=== PATIENT | female | born 1945 | race Caucasian/White ===

== ENCOUNTER 2017-08-14 10:55 | Emergency (ER) | payer OTHER ==
[~2017-08-14] VITALS: Ht 157.5 cm; Wt 72.6 kg
[~2017-08-14 10:55] MED LIST: ACIDOPHILUS1 EAC3 PO; ACIDOPHILUS1 EAC4 PO; EFFEXOR XR75 MG PO; FLONASE 0.05%50 MCG NASAL; HUMALOG100 UNIT/1 SUBQ; HYDROCODON-ACE1 EAC7 PO; HYDROCODONE-AP1 EAC6 PO; KEFLEX500 M1 PO; LEVAQUIN 500 M500 M2 PO; LISINOPRIL-HCT1 EAC1 PO; LOPRESSOR50 PO; MUCINEX1200 MG PO; PREDNISONE 10 M10 M1 PO; PREDNISONE 10 M10 MG PO; PRILOSEC 20 MG20 MG PO; PRINIVIL20 M1 PO; PROTONIX40 M2 PO; SIMVASTATIN20 MG PO; SINGULAIR 10 MG10 M1 PO; SPIRIVA INH; SYMBICORT160 MCG/4. INH; TOUJEO SOL300 UNIT/1 SQ; VANCOMYCIN125 MG/2.1 PO; VESICARE10 M1 PO
[2017-08-14 11:47] LABS: HEMATOCRIT 41.7 % (37.0-47.0); HEMOGLOBIN 13.8 gm/dL (12.0-15.0); MCH 29.3 pg (26.0-34.0); MCHC 33.2 g/dL (28.0-37.0); MCV 88.2 fL (80.0-100.0); MPV 8.1 fl. (7.2-11.1); NUCLEATED RBCS 0 /100WBC; PLATELET COUNT* 218 thou/uL (150-400); RBC 4.72 mil/uL (4.20-5.00); RDW-CV 13.5 % (10.5-14.5); WBC 17.8 thou/uL (4.0-11.0)
[2017-08-14 12:02] LABS: CALCIUM 9.4 mg/dL (8.5-10.1); CREATININE 0.8 mg/dL (0.6-1.3); POTASSIUM 4.1 mmol/L (3.5-5.1)
[2017-08-14 12:07] LABS: ALBUMIN 3.5 g/dL (3.4-5.0); TOTAL BILIRUBIN 0.3 mg/dL (<0.1-1.0); TOTAL PROTEIN 6.6 g/dL (6.4-8.2)
[2017-08-14 12:09] LABS: ABSOLUTE BASOPHILS 0.2 thou/uL (0.0-0.2); ABSOLUTE EOSINOPHILS 0.2 thou/uL (0.0-0.7); ABSOLUTE LYMPHOCYTES 1.4 thou/uL (0.8-5.3); ABSOLUTE MONOCYTES 1.6 thou/uL (0.0-1.2); ABSOLUTE NEUTROPHILS 14.4 thou/uL (1.6-8.1); ATYPICAL LYMPHS 1 %; PLATELET ESTIMATE ADEQUATE
[2017-08-14 13:13] VITALS: BP 132/56
== END 2017-08-14 13:15 | disposition home or self-care (01) ==
LOC: M.ERS 10:55
PROVIDERS: Physician Assistant
DX: S22.31XA Fracture of one rib, right side, initial encounter for closed fracture (principal); J44.9 Chronic obstructive pulmonary disease, unspecified; I95.1 Orthostatic hypotension; E11.9 Type 2 diabetes mellitus without complications; M19.90 Unspecified osteoarthritis, unspecified site; G89.29 Other chronic pain; Z95.0 Presence of cardiac pacemaker; Z88.2 Allergy status to sulfonamides; W18.39XA Other fall on same level, initial encounter; Y93.89 Activity, other specified; Y92.098 Other place in other non-institutional residence as the place of occurrence of the external cause; Y99.8 Other external cause status

== ENCOUNTER 2017-08-27 14:21 | Inpatient (IN) | payer OTHER ==
[~2017-08-27] VITALS: Ht 162.6 cm; Wt 75.4 kg
[2017-08-27 14:26] VITALS: BP 149/102
[2017-08-27 15:04] LABS: HEMATOCRIT 43.7 % (37.0-47.0); HEMOGLOBIN 14.1 gm/dL (12.0-15.0); MCHC 32.3 g/dL (28.0-37.0); MCV 89.6 fL (80.0-100.0); MPV 9.3 fl. (7.2-11.1); NUCLEATED RBCS 0 /100WBC; PLATELET COUNT* 326 thou/uL (150-400); RBC 4.87 mil/uL (4.20-5.00); RDW-CV 13.8 % (10.5-14.5)
[2017-08-27 15:09] LABS: CALCIUM 9.9 mg/dL (8.5-10.1); CREATININE 0.7 mg/dL (0.6-1.3)
[2017-08-27 15:13] LABS: ALBUMIN 2.9 g/dL (3.4-5.0); TOTAL BILIRUBIN 0.3 mg/dL (<0.1-1.0); TOTAL PROTEIN 7.4 g/dL (6.4-8.2)
[2017-08-27 15:39] LABS: ABSOLUTE BASOPHILS 0.2 thou/uL (0.0-0.2); ABSOLUTE LYMPHOCYTES 2.2 thou/uL (0.8-5.3); ABSOLUTE NEUTROPHILS 13.7 thou/uL (1.6-8.1)
[2017-08-27 15:40] LABS: PLATELET ESTIMATE ADEQUATE
[2017-08-27 15:58] LABS: URINE BLOOD 1+ (Negative); URINE CLARITY CLOUDY; URINE COLOR YELLOW; URINE GLUCOSE-RANDOM 2+ (Negative); URINE LEUKOCYTES-REFLEX TRACE (Negative); URINE PROTEIN TRACE (Negative); URINE SPECIFIC GRAVITY >= 1.030 (1.005-1.030); URINE UROBILINOGEN 0.2 E.U./dl (0.2-1.0)
[2017-08-27 16:03] LABS: URINE BILIRUBIN 1+ (Negative); URINE KETONES 3+ (Negative); URINE NITRITE-REFLEX POSITIVE (Negative)
[2017-08-27 16:04] LABS: ICTOTEST (BILI CONFIRMATORY) Negative (Negative)
[2017-08-27 16:14] LABS: URINE WBC-REFLEX 6-15 Few /HPF (0-5); YEAST-REFLEX Present (None Seen)
[2017-08-27 16:15] LABS: SQUAMOUS >10 Many /LPF (0-3)
[2017-08-27 16:16] LABS: MUCUS None Seen strn/LPF (None Seen)
[2017-08-27 16:18] LABS: BACTERIA-REFLEX 1-9 Few /HPF (None Seen); CASTS None Seen /LPF (None Seen); CRYSTALS None Seen /LPF (None Seen); URINE RBC 0-2 Rare /HPF (0-2)
[2017-08-27 17:31] LABS: CK-MB MASS 1.4 ng/mL (<0.5-3.6); TROPONIN-I LEVEL <0.06 ng/mL (<0.06)
[2017-08-27 18:29] VITALS: BP 133/93
[2017-08-27 18:50] VITALS: BP 156/65
--- NOTE | 2017-08-27 19:00 | NUR ---
PT ARRIVED TO THE FLOOR AT 1845 PRIOR TO THIS SHIFT, SHOWN CALL LIGHT AND BED CONTROLS, IN SPECIAL CONTACT ISOLATION, INCONTINENT, WILL MONITOR
[2017-08-28] VITALS: BP 163/59
[2017-08-28 03:08] LABS: GLYCOHEMOGLOBIN (HGB A1C) 10.1 % (4.8-5.6)
[2017-08-28 04:48] LABS: CALCIUM 8.8 mg/dL (8.5-10.1); CREATININE 0.5 mg/dL (0.6-1.3); POTASSIUM 3.3 mmol/L (3.5-5.1)
--- NOTE | 2017-08-28 04:49 | NUR ---
PT SLEPT SOUNDLY DURING THE NIGHT, NEW IV PLACED LAST NIGHT, IV FLUIDS INFUSING, URINARY AND BOWEL INCONTINENCE, PLEASANT, CALL LIGHT IN REACH, WILL CONTINUE TO MONITOR
[2017-08-28 04:53] LABS: ABSOLUTE BASOPHILS 0.1 thou/uL (0.0-0.2); ABSOLUTE EOSINOPHILS 0.1 thou/uL (0.0-0.7); ABSOLUTE LYMPHOCYTES 2.5 thou/uL (0.8-5.3); ABSOLUTE MONOCYTES 1.3 thou/uL (0.0-1.2); ABSOLUTE NEUTROPHILS 9.7 thou/uL (1.6-8.1); BASOPHILS 0.8 %; HEMATOCRIT 40.6 % (37.0-47.0); HEMOGLOBIN 13.5 gm/dL (12.0-15.0); LYMPHOCYTES 18.1 %; MCH 29.2 pg (26.0-34.0); MCHC 33.4 g/dL (28.0-37.0); MCV 87.5 fL (80.0-100.0); MONOCYTES 9.2 %; MPV 8.9 fl. (7.2-11.1); NUCLEATED RBCS 0 /100WBC; PLATELET COUNT* 273 thou/uL (150-400); POLYS 70.9 %; RBC 4.64 mil/uL (4.20-5.00); RDW-CV 13.5 % (10.5-14.5); WBC 13.6 thou/uL (4.0-11.0)
[2017-08-28 08:05] VITALS: BP 133/64
--- NOTE | 2017-08-28 16:11 | NUR ---
MET WITH PT TO DISCUSS HOME SITUATION/DC PLANNING. PT KNOWN TO CM FROM PREVIOUS HOSPITAL STAY AND THEN WENT TO [place] FOR SNF. PT STATES SHE ONLY STAYED ABOUT A WEEK THERE AND THEN RETURNED HOME TO HER INDEPENDENT APT AT THE [facility] PT USES [facility]ALK[facility] AND HOME O2. SHE HAS BEEN TX FOR CDIFF RECENTLY. SHE HAS A HIRED CAREGIVER 3DAYS/WK FOR PERSONAL ASSISTANCE AND THEY ARE TAKING CARE OF HER CAT RIGHT NOW. PT IS FOLLOWED AT HOME BY [facility]. RECEIVED CALL FROM [employer]. SHE VOICED THAT THEY WERE CONCERNED ABOUT PT AND FELT SHE NEEDED TO CONSIDER ASSISTED LIVING. PT MADE AWARE OF THIS AND STATES THAT THEIR SW WAS ASSISTING WITH THAT. PT IS ON A LIST AT [facility]. CALL TO V, PER BONI, THEY ONLY HAVE 2BDRM AT THIS TIME. PT AGREEABLE TO HAVE CM CALL TO CHECK AVAILABILITY WITH OTHERS IN THE AREA AND IF THEY ACCEPT PETS. CALLS PLACED TO A FEW AND WILL UPDATE PT WITH THAT INFO. PT STATES SHE HAS BEEN TO [facility]/SNF IN THE PAST BUT SHE PREFERS TO GO HOME AT DC, DOESN'T WANT TO GO TO SNF. PT HAS A SISTER AND NEPHEW FOR SUPPORT. WILL FOLLOW
[2017-08-28 16:35] VITALS: BP 152/70
--- NOTE | 2017-08-28 17:18 | NUR ---
PATIENT SITTING UP IN CHAIR ALL SHIFT, WEAKNESS NOTED. REMAINS ON 2L NC, C/O SOA WITH EXERTION. INCONTINENT OF B/B. IV ABX STARTED FOR UTI, DR. LOZA HERE THIS EVENING AND IV ABX CHANGED. IVF REMAINS INFUSING. GI CONSULTED PER DR. LOZA FOR RECCURENT CDIFF. TOLERATING DIET. POTASSIUM REPLACED THIS SHIFT.
[2017-08-28 20:20] VITALS: BP 152/62
[2017-08-29 04:20] LABS: HEMATOCRIT 36.7 % (37.0-47.0); MCH 28.9 pg (26.0-34.0); MCHC 32.7 g/dL (28.0-37.0); MCV 88.2 fL (80.0-100.0); MPV 8.7 fl. (7.2-11.1); RBC 4.16 mil/uL (4.20-5.00); WBC 12.9 thou/uL (4.0-11.0)
[2017-08-29 04:41] LABS: CREATININE 0.4 mg/dL (0.6-1.3)
--- NOTE | 2017-08-29 05:28 | NUR ---
PT SLEPT AT INTERVALS DURING THE NIGHT, IV FLUIDS INFUSED, INCONTINENT, REMAINS ON 02, BED ALARM ON FOR SAFETY, CALL LIGHT IN REACH, WILL CONTINUE TO MONITOR
[2017-08-29 08:25] VITALS: BP 196/54
--- NOTE | 2017-08-29 11:26 | CON ---
[address] [address] CONSULTATION Name: KENDALL HERNDON Room: [address] IN .R.#: [id number] Admission: 08/27/17 Attend Phys: Jo-Ann Lucas Discharge: Date of : 49 Report #: [id number] THIS REPORT FOR: //name// CC: Maryjane Anders DATE OF SERVICE: 08/28/2017 INFECTIOUS DISEASE CONSULTATION ATTENDING PHYSICIAN: Joon Anders DO REASON FOR EVALUATION: Recurrent C. diff colitis. HISTORY OF PRESENT ILLNESS: Chart reviewed, patient examined. This is a 72-year-old white female with COPD, who was hospitalized in early July with right-sided chest pain. Subsequently, developed some loose stools, was confirmed to have C. diff, positive toxin assays, was treated with a tapering dose of oral vancomycin. I had seen her as an outpatient roughly 2 weeks ago. She is still having some loose stools despite of this low taper. We rechecked her stool, it was again positive for the C. diff, restarted oral vancomycin 4 times daily; however, this seems to be ineffective. She notes it is almost continuous. She is not clear that she has had fevers. She has intermittent abdominal related pain. She has ongoing issues with difficulty breathing. She was continued on vancomycin 250 p.o. q. 6 hours. ALLERGIES: SULFA. CURRENT MEDICATIONS: Include fluticasone, montelukast, levofloxacin, prednisone, lactobacillus, venlafaxine, lisinopril, pantoprazole, budesonide, atorvastatin, vancomycin orally. PAST MEDICAL HISTORY: As described above, has diabetes mellitus type 2, arthritis, hypertension, chronic lower extremity pain, pacemaker due to complete heart block. SOCIAL HISTORY: Former smoker. No ethanol. FAMILY HISTORY: Noncontributory. REVIEW OF SYSTEMS: As above. PHYSICAL EXAMINATION: GENERAL: She appears ill, moderate distress, undernourished. VITAL SIGNS: Temperature 97.6, pulse 83, respirations 18, blood pressure 133/64. [address] [address] CONSULTATION Name: HERMILACHULAKENDALL Room: [address]#: [id number] Admission: 08/27/17 Attend Phys: Jo-Ann Lucas Discharge: Date of : 49 Report #: [id number] SKIN: Warm, dry, no rashes. HEENT: Otherwise, unremarkable. NECK: Supple. LUNGS: Diminished, overall scattered coarse breath sounds. HEART: Regular with some ectopy. I do not appreciate any murmur. ABDOMEN: Soft, mildly distended. There are no peritoneal signs. GENITOURINARY: Deferred. RECTAL: Deferred. LABORATORY DATA: Electrolytes: Sodium 138, potassium 4.0, chloride 98, bicarbonate is 29, anion gap of 11, BUN and creatinine 14 and 0.7, albumin 2.9, total protein 7.4, estimated GFR of 83. LFTs unremarkable. Lactic acid 1.9. CBC: White count of 18.0, H and H 14.1 and 43.7, platelets of 326. Chest x-ray, moderate right basilar infiltrate, suspect atelectasis. Urinalysis 6-15 white cells, yeast present. CTA chest PE protocol, no evidence of PE or acute process. Blood culture is sterile thus far. Urine culture greater than 10-15 gram-negative rods. ASSESSMENT AND PLAN: Recurrent Clostridium difficile colitis. We will continue the oral vancomycin, add parenteral metronidazole as well this control, have GI evaluate, possible fecal transplantation, clearly is having difficulty clearing the infection. She is on corticosteroids may not be helping a poor nutritional status contributing factor as well. Ideally, we will be able to improve the situation and then consider elective fecal transplant. Secondly has complicated urinary tract infection, we will address that and start cefepime and await culture results. She remains quite tenuous at this point. We will monitor expectantly. <ELECTRONICALLY SIGNED> By: Brent House MD 08/29/17 [id number] House MD /nt
--- NOTE | 2017-08-29 14:33 | NUR ---
SW followed up with pt and provided information on assisted living facilities and discussed safe dc planning. Pt said she was not sure what she wanted to do yet and said she would think about her options. Also possibility that pt would transfer for a possible fecal transplant if indicated as necessary. SW to continue to follow to assist with safe dc planning.
[2017-08-29 15:35] VITALS: BP 165/63
--- NOTE | 2017-08-29 16:54 | NUR ---
PATIENT RESTING IN BED. PATIENT HAS BEEN UP TO CHAIR FOR MEALS. PATIENT IS SHORT OF AIR WITH EXERTION, OXYGEN ON AT 3L/NC. PATIENT IS UP STANDBY ASSIST. PATIENT HAS HAD BOWEL MOVEMENT X 1, STATES IT IS MORE SOLID. PATIENT DENIES ANY NEEDS AT THIS TIME. CALL LIGHT WITHIN REACH. WILL CONITNUE TO MONITOR.
[2017-08-29 20:30] VITALS: BP 197/71
[2017-08-30 00:08] VITALS: BP 185/80
--- NOTE | 2017-08-30 05:07 | NUR ---
PT SLEPT SOUNDLY DURING THE NIGHT, IV FLUIDS INFUSED, INCONTINENT OF BOWEL AND BLADDER, REMAINS ON 02 AT 2L/NC, CALL LIGHT IN REACH, BED ALARM ON FOR SAFETY, WILL CONTINUE TO MONITOR
[2017-08-30 08:20] VITALS: BP 138/69
[2017-08-30 14:24] LABS: URINE BILIRUBIN NEGATIVE (Negative); URINE BLOOD NEGATIVE (Negative); URINE CLARITY CLEAR; URINE COLOR YELLOW; URINE GLUCOSE-RANDOM 3+ (Negative); URINE KETONES TRACE (Negative); URINE LEUKOCYTES-REFLEX NEGATIVE (Negative); URINE NITRITE-REFLEX NEGATIVE (Negative); URINE PROTEIN NEGATIVE (Negative); URINE UROBILINOGEN 0.2 E.U./dl (0.2-1.0)
--- NOTE | 2017-08-30 15:30 | NUR ---
SPOKE WITH DR ENGLAND RE: POSSIBLE TRANSFER NOTED IN CHART DOCUMENT FOR FECAL TRANSPLANT. DR ENGLAND STATED HE HAD SPOKEN WITH GI AND PLAN WILL BE FOR AN OUTPT FECAL TRANSPLANT.
--- NOTE | 2017-08-30 20:36 | NUR ---
PATIENT RESTING UP IN CHAIR. PATIENT IS UP WITH MINIMAL ASSIST. PATIENT DENIES ANY PAIN. PATIENT HAS HAD BOWEL MOVEMENTS X 2. PATIENT IS ON 2L/NC. PATIENT HAS GOOD APPETITE. PATIENT DENIES ANY NEEDS AT THIS TIME. CALL LIGHT WITHIN REACH. WILL CONTINUE TO MONITOR.
[2017-08-31 00:50] VITALS: BP 182/81
--- NOTE | 2017-08-31 07:35 | NUR ---
PT SLEPT WELL OVERNIGHT. HS ACCUCHECK 377, INSULIN GIVEN WITH SNACK. O2 2.5L PER HOME. INCONTINENT URINE OVERNIGHT, NO BM. NO LABS THIS MORNING. LW IVF INFUSING PER PUMP. REMAINS ON SP CONTACT ISOLATION FOR +CDIFF. BUI. PO VANC AND IV ABX GIVEN ORDERED. ABLE TO USE CALL LITE AND MAKE NEEDS KNOWN.
[2017-08-31 08:00] VITALS: BP 181/58
[2017-08-31 16:00] VITALS: BP 156/65
--- NOTE | 2017-08-31 19:00 | NUR ---
DAY 5 OF STAY. A/O X 4, DENIES DISCOMFORT. SBA WITH TRANSFERS, INCONTINENT OF URINE ALL THIS SHIFT. BM TODAY VIA BSC. CONT ON 2L02NC, LUNGS DIMIN WITH WHEEZES AND CRACKLES, PURSED LIP BREATHING AT REST. BLOOD SUGARS CONT TO BE ELEVATED, PATIENT CONT TO EAT HEAVY CARB MEALS, CHEESEBURGER WITH BUN AND FRIES FOR LUNCH, PIZZA FOR SUPPER, ETC. PATIENT CONCERNED ABOUT NOT MEETING CRITERIA FOR ASSISTED LIVING ENVIRONMENT. CALL LIGHT IN REACH, CONT POC.
[2017-08-31 23:21] VITALS: BP 173/62
[2017-09-01 05:14] LABS: HEMATOCRIT 38.3 % (37.0-47.0); HEMOGLOBIN 12.8 gm/dL (12.0-15.0); MCHC 33.4 g/dL (28.0-37.0); MCV 86.9 fL (80.0-100.0); MPV 8.8 fl. (7.2-11.1); RBC 4.41 mil/uL (4.20-5.00); RDW-CV 13.6 % (10.5-14.5); WBC 16.2 thou/uL (4.0-11.0)
[2017-09-01 05:54] LABS: ALBUMIN 2.7 g/dL (3.4-5.0); CALCIUM 9.5 mg/dL (8.5-10.1); CREATININE 0.6 mg/dL (0.6-1.3); MAGNESIUM 1.8 mg/dL (1.8-2.4); POTASSIUM 4.2 mmol/L (3.5-5.1); TOTAL BILIRUBIN 0.2 mg/dL (<0.1-1.0); TOTAL PROTEIN 5.8 g/dL (6.4-8.2)
--- NOTE | 2017-09-01 06:58 | NUR ---
PT SLEPT WELL OVERNIGHT. INCONTINENT URINE. LFA SL, IV ABX GIVEN ORDERED. HS ACCUCHECK 325, INSULIN GIVEN WITH SNACK. AM LABS DRAWN. PT DENIES PAIN. ABLE TO USE CALL LITE AND MAKE NEEDS KNOWN. NO BM OVERNIGHT. REMAINS ON SP CONTACT ISOLATION FOR CDIFF. O2 2L, BUI WITH PURSED LIP BREATHING WITH MUCH TALKING. PO VANC GIVEN ORDERED.
[2017-09-01 08:00] VITALS: BP 154/61
[2017-09-01 16:27] VITALS: BP 137/71
--- NOTE | 2017-09-01 20:15 | NUR ---
RESUMED CARE THIS SHIFT. A/O X 4, CONT TO BE INCONT OF URINE, CONTINENT OF BOWEL, DID HAVE BM VIA BSC THIS SHIFT. CONT ON 2LO2NC, PURSED LIP BREATHING, CRACKLES AND DIMINISHED LUNG SOUNDS. VITAL SIGNS STABLE, RK DIET WELL, BLOOD SUGARS CONT TO BE ELEVATED, MANAGED WITH INSULIN. DISCHARGE PLAN IS TO ADMIT FOR SKILLED SERVICES LOCALLY, THEN TRANSFER TO [facility]. CALL LIGHT IN REACH, CONT POC.
[2017-09-01 22:00] VITALS: BP 175/47
[2017-09-02 04:19] LABS: HEMATOCRIT 36.3 % (37.0-47.0); HEMOGLOBIN 12.7 gm/dL (12.0-15.0); MCHC 34.8 g/dL (28.0-37.0); MCV 83.2 fL (80.0-100.0); MPV 8.3 fl. (7.2-11.1); RBC 4.37 mil/uL (4.20-5.00); RDW-CV 13.6 % (10.5-14.5); WBC 17.7 thou/uL (4.0-11.0)
[2017-09-02 04:31] LABS: CALCIUM 9.6 mg/dL (8.5-10.1); CREATININE 0.7 mg/dL (0.6-1.3); MAGNESIUM 1.8 mg/dL (1.8-2.4); POTASSIUM 3.7 mmol/L (3.5-5.1)
--- NOTE | 2017-09-02 07:08 | NUR ---
PT SLEPT WELL OVERNIGHT. INCONTINENT URINE, ELEONORA CARE GIVEN. PT TURNED AND REPOSITIONED Q2 HOURS AND PRN FOR SKIN CARE AND COMFORT. NEW IV LFA SL, ABX GIVEN ORDERED. RT TX. HS ACCUCHECK 291, INSULIN GIVEN. LOVENOX STARTED. AM LABS DRAWN. O2 2.5L NC, BUI, SOME PURSED LIP BREATHING. REMAINS ON SP CONTACT ISOLATION FOR CDIFF. NO BM OVERNIGHT. PO VANC GIVEN ORDERED.
[2017-09-02 08:00] VITALS: BP 180/72
--- NOTE | 2017-09-02 15:59 | NUR ---
CESARIO followed up with pt on possible dc to SNF and pt said she would not be certain about dc today as she knew that she was going to have an x-ray and another test. CESARIO checked with [facility] admissions and Jann said that [facility] does not have any beds available today. Pt agreeable to [facility] and CESARIO sent referral. Karlene from Admissions with [facility] said that they would submit for authorization from insurance and possibly able to accept pt tomorrow. SW to continue to follow to assist with finalizing safe dc plan. Pt also discussed for after SNF, pt interested in [facility] in [place] and requested her information be faxed to them...pt okay with [facility] services assisting and providing information to possible SNF.
[2017-09-02 16:00] VITALS: BP 151/64
--- NOTE | 2017-09-02 20:01 | NUR ---
RESUMED CARE THIS AM. A/O X 4, DENIES PAIN, SBA WITH TRANSFERS. CONT ON 2LO2NC, LUNGS DIMIN WITH WHEEZES, PURSED LIP BREATHING CONT. INCONTINENT OF URINE, DID HAVE MED BM THIS SHIFT. DISCHARGE PLAN IS TO ADMIT TO [facility] [place] FOR SKILLED THERAPY SERVICES, OUTPATIENT FECAL TRANSPLANT AT [place], THEN TO [facility] FOR [facility]. CALL LIGHT IN REACH.
[2017-09-03 00:43] VITALS: BP 156/61
[2017-09-03 04:52] LABS: HEMATOCRIT 36.1 % (37.0-47.0); HEMOGLOBIN 12.4 gm/dL (12.0-15.0); MCH 28.9 pg (26.0-34.0); MCHC 34.4 g/dL (28.0-37.0); MCV 83.9 fL (80.0-100.0); MPV 8.2 fl. (7.2-11.1); NUCLEATED RBCS 0 /100WBC; PLATELET COUNT* 298 thou/uL (150-400); RBC 4.31 mil/uL (4.20-5.00); RDW-CV 13.9 % (10.5-14.5)
[2017-09-03 05:38] LABS: ABSOLUTE LYMPHOCYTES 3.2 thou/uL (0.8-5.3); ABSOLUTE MONOCYTES 0.9 thou/uL (0.0-1.2); ABSOLUTE NEUTROPHILS 13.9 thou/uL (1.6-8.1); PLATELET ESTIMATE ADEQUATE
[2017-09-03 05:39] LABS: ANISOCYTOSIS 1+; POIKILOCYTOSIS 1+
--- NOTE | 2017-09-03 06:38 | NUR ---
ASSESSMENT COMPLETE. PT SLEPT THROUGH THE NIGHT WITHOUT ANY CONCERNS. PT DENIES PAIN AND N/V. PT IS ON 2L PER NC WITH ADEQUATE SATS. PT DID NOT HAVE BM DURING THE NIGHT. PT HAS IV IN LEFT FOREARM WITH FLUIDS INFUSING. SKIN INTACT. PT TURNS SELF IN BED. SEE ASSESSMENT AND VITALS FOR OTHER DETAILS. CALL LIGHT WITHIN REACH, BED ALARM ON. WILL CONTINUE TO MONITOR
[2017-09-03 08:45] VITALS: BP 157/62
[2017-09-03 12:23] VITALS: BP 157/62
[2017-09-03 12:23] LABS: BE 6.3 mmol/L (-2 to +3); HCO3 31.9 mmol/L (22.0-26.0); PCO2 49.6 mmHg (35.0-45.0); PO2 110.1 mmHg (75.0-100.0); pH 7.426 (7.340-7.450)
[2017-09-03 13:54] VITALS: BP 157/62
--- NOTE | 2017-09-03 13:57 | NUR ---
CESARIO followed up with Karlene/admissions at [facility] on pt dc. Pt accepted and facility can send wc van to transport pt at 15:00. SW faxed final orders and dc instructions to [facility].
--- NOTE | 2017-09-03 15:04 | NUR ---
PATIENT DISCHARGED AT THIS TIME VIA WHEELCHAIR VAN TO THE [facility]. REPORT CALLED TO LUCI AT [place]. IV DC'D. ORDERS FOR PO VANC RECEIVED PER DR. LOZA. PATIENT HAD SOFT STOOL THIS AM. NO COMPLAINTS OF PAIN. ELEVATED BLOOD SUGAR AT NOON, DR. ENGLAND AWARE. ALL BELONGINGS SENT WITH PATIENT.
== END 2017-09-03 15:07 | DRG 177 ==
LOC: M.ERS 14:21 → M.TBA-ER 14:49 → M.3W 14:49
PROVIDERS: Family Medicine; Personal Emergency Response Attendant; Specialist; ADMIT Internal Medicine
DX: J69.0 Pneumonitis due to inhalation of food and vomit (principal); E43 Unspecified severe protein-calorie malnutrition; A04.71 Enterocolitis due to Clostridium difficile, recurrent; N39.0 Urinary tract infection, site not specified; R65.10 Systemic inflammatory response syndrome (SIRS) of non-infectious origin without acute organ dysfunction; J44.1 Chronic obstructive pulmonary disease with (acute) exacerbation; E11.9 Type 2 diabetes mellitus without complications; M19.90 Unspecified osteoarthritis, unspecified site; I10 Essential (primary) hypertension; G89.29 Other chronic pain; M79.669 Pain in unspecified lower leg; D72.829 Elevated white blood cell count, unspecified; I45.9 Conduction disorder, unspecified; E78.5 Hyperlipidemia, unspecified; F39 Unspecified mood [affective] disorder; B96.1 Klebsiella pneumoniae [K. pneumoniae] as the cause of diseases classified elsewhere; Z88.2 Allergy status to sulfonamides; Z87.891 Personal history of nicotine dependence; Z99.81 Dependence on supplemental oxygen; Z79.899 Other long term (current) drug therapy; Z68.28 Body mass index [BMI] 28.0-28.9, adult